=== PATIENT | female | born 1990 | race Caucasian/White ===

== ENCOUNTER 2016-08-12 14:11 | Emergency (ER) | payer OTHER ==
[~2016-08-12] VITALS: Ht 154.9 cm; Wt 72.6 kg
[~2016-08-12 14:11] MED LIST: ONDA4TAB5 PO; PREN1TAB59 PO
--- NOTE | 2016-08-12 14:11 | NUR ---
PT BIB SELF RIGHT ANKLE/FOOT PAIN/SWELLING, S/P FALL . VSS. AWAITING MD ORDER
--- NOTE | 2016-08-12 14:50 | NUR ---
PT REFUSED TO GIVE URINE SAMPLE. RACHEL MADE AWARE. AGREES TO SIGN FORM FOR XRAY
--- NOTE | 2016-08-12 15:04 | NUR ---
JOINT SEALER AT BEDSIDE
[2016-08-12] MEDS ORDERED: ACETAMINOPHEN ES 500 MG TABLET ONE (16:00)
[2016-08-12] MEDS ORDERED: ACETAMINOPHEN ES 500 MG TABLET PO ONE (16:00)
[2016-08-12 16:02] VITALS: BP 115/80
--- NOTE | 2016-08-12 16:03 | NUR ---
Patient discharged to home in stable condition. Written and verbal after care instructions given. Patient verbalizes understanding of instruction.
== END 2016-08-12 16:06 | disposition home or self-care (01) ==
LOC: ER 14:12
DX: S93.401A Sprain of unspecified ligament of right ankle, initial encounter (principal); W01.0XXA Fall on same level from slipping, tripping and stumbling without subsequent striking against object, initial encounter; Y93.89 Activity, other specified; Y92.89 Other specified places as the place of occurrence of the external cause; Y99.8 Other external cause status
CPT/HCPCS: 73610; 99284; A4606; Z7610

== ENCOUNTER 2017-04-13 00:24 | Emergency (ER) | payer OTHER ==
[~2017-04-13] VITALS: Ht 160 cm; Wt 68.0 kg
[2017-04-13] MEDS ORDERED: LORAZEPAM INJ 2 MG/ML VIAL ONE (01:17)
[2017-04-13 01:20] VITALS: BP 149/61
[2017-04-13] MEDS ORDERED: LORAZEPAM INJ 2 MG/ML VIAL IM ONE (01:30)
== END 2017-04-13 01:54 | disposition home or self-care (01) ==
LOC: ER 00:24
DX: F41.9 Anxiety disorder, unspecified (principal); Z87.442 Personal history of urinary calculi
CPT/HCPCS: 71045-TC; A4606; J2060; Z7610